=== PATIENT | female | born 1985 | race Native Hawaiian/Other Pacific Islander ===

== ENCOUNTER 2017-05-10 12:01 | Day surgery (SDC) | payer BC ==
[~2017-05-10] VITALS: Ht 30.5 cm; Wt 0.5 kg
== END 2017-05-10 15:10 | disposition home or self-care (01) ==
LOC: OR 12:01
PROC: 0DBE8ZZ Excision of Large Intestine, Via Natural or Artificial Opening Endoscopic (ICD-10-PCS; principal; 2017-05-10)
DX: K57.30 Diverticulosis of large intestine without perforation or abscess without bleeding (principal); K64.8 Other hemorrhoids; K92.1 Melena; R19.4 Change in bowel habit; K59.00 Constipation, unspecified
CPT/HCPCS: J2001; J2250; J2704; J3010